=== PATIENT | female | born 1990 | race African-American/Black ===

== ENCOUNTER 2016-05-25 12:02 | Inpatient (IN) | payer OTHER ==
[~2016-05-25] VITALS: Ht 165.1 cm; Wt 68.0 kg
--- NOTE | ~2016-05-25 | 2DMMODE ---
[facility] [place] [address] 2 D/M-MODE ECHOCARDIOGRAM Name: DAXA HINTON Room #: 440-P [facility] IN ..#: [id number] Admission: 05/25/16 Attend Phys: Kishan Slade MD Discharge: Date of : 89 Date of Service: 05/26/16 1026 Report #: [id number] THIS REPORT FOR: //name// APPROVED REPORT Study performed: 05/26/2016 09:06:27 EXAM: Comprehensive 2D, Doppler, and color-flow Echocardiogram Patient Location: Bedside/ROOM 440 Blood Pressure: 106/57 mmHg HR: 40 bpm Rhythm: Bradycardia Other Information Study Quality: Good Indications Lupus flare, possible pericarditis. 2D Dimensions RVDd: 40.97 mm LVEF(%): 74.27 (>50%) IVSd: 10.47 (7-11mm) LVOT Diam: 20.20 (18-24mm) LVDd: 46.59 mm PWd: 10.60 (7-11mm) Ascending Aorta: 26.83 mm LVDs: 26.50 (25-40mm) Aortic Root: 27.02 mm No's LVEF: 74.27 % Volumes Left Atrial Volume (Systole) Single Plane 4CH: 51.76 mL Single Plane 2CH: 50.29 mL LA ESV Index: 31.00 mL/m2 Aortic Valve AoV Peak Arthur.: 1.47 m/s AO Peak Gr.: 8.66 mmHg LV Max P.03 mmHg LV Max: 1.12 m/s Mitral Valve MV PHT: 79.85 ms MV E Max Arthur.: 0.82 m/s E/A Ratio: 1.9 MV A Arthur.: 0.44 m/s MV Decel. Time: 275.34 ms [facility] [place] [address] 2 D/M-MODE [facility]IOGRAM [facility] #: 440-P ADM IN M.R.#: [id number] Admission: 05/25/16 Attend Phys: Kishan Slade MD Discharge: Date of : 89 Date of Service: 05/26/16 1026 Report #: [id number] Pulmonary Valve PV Peak Arthur.: 1.02 m/s PV Peak Gr.: 4.15 mmHg Tricuspid Valve TR Peak Arthur.: 2.02 m/s RAP Estimate: 5.00 mmHg TR Peak Gr.: 16.33 mmHg RVSP: 21.00 mmHg Left Ventricle The left ventricle is normal size. There is normal LV segmental wall motion. There is normal left ventricular wall thickness. Left ventricular systolic function is normal. LVEF is 60-65%. The left ventricular diastolic function is normal. Right Ventricle The right ventricle is normal size. The right ventricular systolic function is normal. Atria The left atrium size is normal. The atrial septum is aneurysmal. Injection of bubbles documented no interatrial shunt. The right atrium size is normal. Aortic Valve The aortic valve is normal in structure. No aortic regurgitation is present. There is no aortic valvular stenosis. Mitral Valve The mitral valve is normal in structure. Trace mitral regurgitation. Tricuspid Valve The tricuspid valve is normal in structure. There is trace to mild tricuspid regurgitation. The right atrial pressure is estimated at 5 mmHg. Estimated PAP is 21mmHg. Pulmonic Valve The pulmonary valve is normal in structure. Mild pulmonic regurgitation. Great Vessels The aortic root is normal in size. The ascending aorta is normal in size. IVC is normal in size and collapses >50% with inspiration. Pericardium [address] [address] 2 D/M-MODE ECHOCARDIOGRAM Name: DAXA HINTON Room #: 440-P ADM IN M.R.#: [id number] Admission: 05/25/16 Attend Phys: Kishan Slade MD Discharge: Date of : 89 Date of Service: 05/26/16 1026 Report #: [id number] There is no pericardial effusion. <Conclusion> The left ventricle is normal size. LVEF is 60-65%. The aortic valve is normal in structure. The mitral valve is normal in structure. There is trace to mild tricuspid regurgitation. The right atrial pressure is estimated at 5 mmHg. Estimated PAP is 21mmHg. The atrial septum is aneurysmal. Injection of bubbles documented no interatrial shunt. Mild pulmonic regurgitation. <ELECTRONICALLY SIGNED> By: Xander Mariee MD 05/26/16 1026 1026 1026 Xander Mariee MD /INF
--- NOTE | ~2016-05-25 | HC ---
[facility] [place] [address] CONSULTATION Name: DAXA HINTON Room #: 440-P [facility] IN M.R.#: [id number] Admission: 05/25/16 Attend Phys: Kishan Slade MD Discharge: Date of : 89 Report #: [id number] THIS REPORT FOR: //name// CC: Moreno Slade DATE OF SERVICE: 05/25/2016 ATTENDING PHYSICIAN: Dr. Slade. REASON FOR CONSULTATION: Elevating creatinine and active urine sediment in a patient with known systemic lupus, HISTORY OF PRESENT ILLNESS: A 25-year-old patient became acutely ill 4 years ago, was admitted at [facility] at that time, had an acute flare, which was diagnosed lupus nephritis, requiring dialysis, was treated with at least one dose of cyclophosphamide steroids and placed on mycophenolate. She has been reasonably stable according to her account, recovered her renal function, off dialysis, followed in our office by Dr. Kelly Isaacs. She apparently had another flare also requiring steroids and cyclophosphamide. She has a maintenance dose of 50 mg of prednisone as well as mycophenolate, but she stopped taking the prednisone 2 months ago on her own. Two weeks ago she developed an illness characterized by stiffness, myalgias, arthralgias, weakness, back pain, worsening, constitutional symptoms eventually requiring a blood draw last week, which showed a creatinine risen from the mid 1 range up to 2.7 and she was to see her project construction assistant manager this week for consideration of immunosuppressive therapy. She continued to become ill, was admitted to the hospital here with a creatinine of 3.6, a potassium of 6.1, white count is only 2.8. Her urine sediment showed red cells, white cells and protein, no ____ casts were reported and we will need to examine that ourselves. PAST MEDICAL HISTORY: Aside from the lupus, she has been reasonably healthy. She has got some hypertension. HOME MEDICATIONS: Include lisinopril, mycophenolate, a course of prednisone, which she stopped on her own 2 months ago. FAMILY HISTORY: Strongly positive for renal disease. She has a father with diabetes, diabetic nephropathy, on dialysis and a brother with very severe hypertension, no diabetes. No connective tissue disease. Also has renal failure. SOCIAL HISTORY: No substantial cigarettes, alcohol or recreational drugs. REVIEW OF SYSTEMS: GENERAL: She feels poorly. [facility] [address] [place] [address] CONSULTATION Name: DAXA HINTON Room #: 440-P [facility] IN M.R.#: [id number] Admission: 05/25/16 Attend Phys: Kishan Slade MD Discharge: Date of : 89 Report #: [id number] EYES: Vision overall is okay. ENT: Hearing okay, swallows okay. ENDOCRINE: No diabetes or thyroid disease. RESPIRATORY: Does get somewhat easily short-winded. CARDIAC: No specific history of cardiac disease, no history of arrhythmias, or heart failure or angina. GASTROINTESTINAL: She has had a very poor appetite, has had trouble keeping down her fluid. GENITOURINARY: Denies dysuria. NEUROLOGIC: Just generalized weakness. SKELETAL: Diffuse and severe myalgias and weakness and stiffness in her legs. PHYSICAL EXAMINATION: VITAL SIGNS: This is an ill-appearing young lady, but giving a reasonably cogent history. SKIN: Unremarkable. No rashes noted. SKELETAL: She has some maybe some swelling in the hands. EYES: Extraocular movements are full. No scleral icterus. Hearing and vision intact. Mucous membranes slightly dry. No mouth ulcers are seen. NECK: Supple, no carotid bruits, no lymphadenopathy. CHEST: Clear to auscultation. HEART: Regular, without murmurs, gallops or rubs. ABDOMEN: Soft and nontender, without bruits, masses or organomegaly. EXTREMITIES: Show no peripheral edema. Pulses intact. NEUROLOGIC: Grossly intact. LABORATORY DATA: As mentioned, urinalysis showed 3+ protein, white and red cells. Hemoglobin is 10.9, white count 2.8, platelets 203. Sodium 138, potassium 6.1, chloride 100, bicarbonate 24, BUN 19, creatinine 3.6. ASSESSMENT AND PLAN: Systemic lupus with apparent flare including renal flare. We will need to get hold of her previous biopsy results. In the meantime, she appears to be having a lupus flare with a rising creatinine, generalized illness, serum compliments will be sent. Rheumatology consult will be obtained. I will start her on Solu-Medrol 500 mg IV x 3 days during this evening. Full cultures are taken for precautionary measures including urine and blood cultures and she has been started on some antibiotics also prophylactically by her attending physician. Once we have obtained her previous biopsy reports and a more thorough history from our office notes, further plan and evaluation will be forthcoming. For completeness, echocardiogram, chest x-ray, renal sonogram with bladder postvoid are ordered as well. By: [id number] Rehan Warren MD /nt
--- NOTE | ~2016-05-25 | EKG ---
[address] [address] ELECTROCARDIOGRAM REPORT Name: DAXA HINTON Room #: 170-2 ADM IN M.R.#: [id number] Admission: 05/25/16 Attend Phys: Kishan Slade MD Discharge: Date of : 89 Report #: [id number] THIS REPORT FOR: //name// [facility] ED Test Date: 2016-05-25 Test Time: 14:08:01 Pat Name: DAXA HINTON Department: Room: 170 Gender: F Director Recreation: ERIC : 1990 Requested By: Pablo Crystal Order Number: [id number] MD: Santino Whittington Measurements Intervals Decker Rate: 56 P: 43 RI: 162 QRS: 44 QRSD: 86 T: 2 QT: 362 QTc: 350 Interpretive Statements Sinus rhythm ST elev, probable normal early repol pattern No previous ECG available for comparison Electronically Signed On 05-25-2016 15:59:08 CDT by Santino Whittington [email or web address] <ELECTRONICALLY SIGNED> By: Santino Whittington MD 05/25/16 1559 1408 07 Santino Whittington MD /ADAM
[~2016-05-25 12:02] MED LIST: MYCOPHENOLIC A360 MG PO; PREDNISONE 10 M10 MG PO; ZESTRIL20 MG PO
[2016-05-25 12:09] VITALS: BP 107/64
[2016-05-25] MEDS ORDERED: NORCO 5-325 TA1 EACH PO (12:12)
[2016-05-25 12:27] LABS: URINE BILIRUBIN NEGATIVE (Negative); URINE BLOOD 2+ (Negative); URINE COLOR YELLOW; URINE GLUCOSE-RANDOM* NEGATIVE (Negative); URINE KETONES NEGATIVE (Negative); URINE NITRITE NEGATIVE (Negative); URINE PROTEIN (DIPSTICK) 3+ (Negative); URINE SPECIFIC GRAVITY 1.015 (1.003-1.035); URINE UROBILINOGEN 0.2 E.U./dl (0.2-1.0)
[2016-05-25 12:42] LABS: SQUAMOUS 4-10 Moderate /LPF (0-3)
[2016-05-25 12:43] LABS: CRYSTALS None Seen /LPF (None Seen); HYALINE CASTS 0-3 Few /LPF (None Seen); URINE RBC 3-10 Few /HPF (0-2)
[2016-05-25] MEDS ORDERED: MACROBID 100 M100 M1 PO (12:56)
[2016-05-25 13:23] LABS: HEMATOCRIT 32.3 % (37.0-47.0); HEMOGLOBIN 10.9 gm/dL (12.0-15.0); MANUAL DIFF YES; MCH 27.3 pg (26.0-34.0); MCHC 33.8 g/dL (28.0-37.0); MCV 80.8 fL (80.0-100.0); PLATELET COUNT 203 thou/uL (150-400); RDW 14.5 % (10.5-14.5); WBC 2.8 thou/uL (4.0-11.0)
[2016-05-25 13:32] LABS: CREATININE 3.6 mg/dL (0.6-1.0)
[2016-05-25 13:38] LABS: POTASSIUM 6.1 mmol/L (3.5-5.1)
[2016-05-25 13:54] LABS: ABSOLUTE NEUTROPHILS 1.9 thou/uL (1.4-8.2); PLATELET ESTIMATE NORMAL; TOTAL CELL COUNT 100
[2016-05-25 14:44] LABS: NT-PRO BRAIN NAT PEPTIDE 81 pg/mL (<300); TROPONIN-I < 0.04 ng/mL (<0.04-0.07)
[2016-05-25 15:54] VITALS: BP 108/67
[2016-05-25 16:30] VITALS: BP 116/67
[2016-05-25 18:17] LABS: CALCIUM 8.6 mg/dL (8.5-10.1); CREATININE 3.4 mg/dL (0.6-1.0); POTASSIUM 5.6 mmol/L (3.5-5.1)
[2016-05-25 20:20] VITALS: BP 116/71
[2016-05-26 00:02] VITALS: BP 115/66
[2016-05-26 05:25] LABS: HEMATOCRIT 34.1 % (37.0-47.0); HEMOGLOBIN 11.1 gm/dL (12.0-15.0); MCH 26.7 pg (26.0-34.0); MCHC 32.7 g/dL (28.0-37.0); MCV 81.6 fL (80.0-100.0); RBC 4.18 mil/uL (4.20-5.00); RDW 14.8 % (10.5-14.5); WBC 2.4 thou/uL (4.0-11.0)
[2016-05-26 05:30] VITALS: BP 107/61
[2016-05-26 06:12] LABS: ALBUMIN 2.5 g/dL (3.4-5.0); CALCIUM 8.5 mg/dL (8.5-10.1); CREATININE 3.4 mg/dL (0.6-1.0); PHOSPHORUS 3.2 mg/dL (2.5-4.9); POTASSIUM 5.9 mmol/L (3.5-5.1)
[2016-05-26 08:09] LABS: URINE CREATININE-RANDOM* 118.8 mg/dL (Not Estab.); URINE PROTEIN-RANDOM* 125.2 mg/dL (Not Estab.)
[2016-05-26 08:22] VITALS: BP 106/57
[2016-05-26 12:37] VITALS: BP 129/62
[2016-05-26 13:09] LABS: ANTI-DNA SCREEN 95 IU/mL (0-9)
[2016-05-26 16:45] VITALS: BP 135/68
[2016-05-26 19:55] VITALS: BP 126/81
[2016-05-27 05:25] VITALS: BP 128/52
[2016-05-27 06:04] LABS: HEMOGLOBIN 11.5 gm/dL (12.0-15.0); MCH 26.6 pg (26.0-34.0); MCHC 32.8 g/dL (28.0-37.0); MCV 81.2 fL (80.0-100.0); RBC 4.31 mil/uL (4.20-5.00); RDW 14.8 % (10.5-14.5); WBC 7.5 thou/uL (4.0-11.0)
[2016-05-27 06:13] LABS: ALBUMIN 2.3 g/dL (3.4-5.0); CALCIUM 8.7 mg/dL (8.5-10.1); CREATININE 3.3 mg/dL (0.6-1.0); MAGNESIUM 2.2 mg/dL (1.8-2.4); PHOSPHORUS 5.3 mg/dL (2.5-4.9); POTASSIUM 4.6 mmol/L (3.5-5.1)
[2016-05-27 07:40] VITALS: BP 119/62
[2016-05-27 11:04] VITALS: BP 130/81
[2016-05-27 15:19] VITALS: BP 124/54
[2016-05-27 19:24] VITALS: BP 135/72
[2016-05-28 04:20] VITALS: BP 102/66
[2016-05-28 07:04] LABS: ALBUMIN 2.2 g/dL (3.4-5.0); CALCIUM 8.4 mg/dL (8.5-10.1); CREATININE 3.1 mg/dL (0.6-1.0); PHOSPHORUS 4.7 mg/dL (2.5-4.9); POTASSIUM 4.3 mmol/L (3.5-5.1)
[2016-05-28 08:00] VITALS: BP 120/74
[2016-05-28 09:39] VITALS: BP 120/74
[2016-05-28 13:26] VITALS: BP 120/74
== END 2016-05-28 14:18 | disposition home or self-care (01) | DRG 545 ==
LOC: ER 12:02 → EROBS 14:44 → 4S 14:44
PROVIDERS: Hospitalist; Internal Medicine; Internal Medicine Nephrology; Nurse Practitioner
DX: M32.14 Glomerular disease in systemic lupus erythematosus (principal); E43 Unspecified severe protein-calorie malnutrition; N17.9 Acute kidney failure, unspecified; N39.0 Urinary tract infection, site not specified; I12.9 Hypertensive chronic kidney disease with stage 1 through stage 4 chronic kidney disease, or unspecified chronic kidney disease; N18.9 Chronic kidney disease, unspecified; E86.0 Dehydration; E87.5 Hyperkalemia; G35 Multiple sclerosis; Z91.14 Patient's other noncompliance with medication regimen; Z68.25 Body mass index [BMI] 25.0-25.9, adult; Z87.891 Personal history of nicotine dependence; Z84.2 Family history of other diseases of the genitourinary system; Z83.3 Family history of diabetes mellitus; Z82.49 Family history of ischemic heart disease and other diseases of the circulatory system
CPT/HCPCS: 10100